=== PATIENT | female | born 1975 | race Caucasian/White ===

== ENCOUNTER 2017-09-09 15:03 | Inpatient (IN) | payer MEDICARE, MEDICAID ==
[~2017-09-09] VITALS: Ht 167.6 cm; Wt 68.5 kg
[2017-09-09] MEDS ORDERED: AMIT10TA6 PO (15:23)
[2017-09-09] MEDS ORDERED: GABA-529 PO (15:23)
[2017-09-09] MEDS ORDERED: HYDR-3705 PO (15:23)
[2017-09-09] MEDS ORDERED: ACETAMINOPHEN 325 MG TABLET PO ONE (16:30)
[2017-09-09] MEDS ORDERED: GABA-531 PO (18:19)
[2017-09-09] MEDS ORDERED: SUMAtriptan SUCCINATE 6 MG/0.5 ML VIAL SQ ONE (18:30)
[2017-09-09 19:43] LABS: BASOPHILS % (AUTO) 0.2 % (0.0-2.0); HEMATOCRIT 40.3 % (36-46); HEMOGLOBIN 13.6 g/dL (12.0-16.0); LYMPHOCYTES # (AUTO) 2.1 K/uL (1.0-4.8); LYMPHOCYTES % (AUTO) 21.5 % (22.0-44.0); MEAN CORPUSCULAR HEMOGLOBIN 30.7 pg (26.0-34.0); MEAN CORPUSCULAR HGB CONC 33.6 G/dL (31.0-37.0); MEAN CORPUSCULAR VOLUME 91 fL (80-100); MONOCYTES # (AUTO) 0.8 K/uL (0.1-1.0); NEUTROPHILS # (AUTO) 6.9 K/uL (1.8-7.7); NEUTROPHILS % (AUTO) 69.3 % (40.0-70.0); PLATELET COUNT (AUTO) 199 K/uL (150-450); RED BLOOD CELL COUNT(AUTO) 4.42 MIL/uL (4.00-5.20); RED CELL DISTRIBUTION WIDTH 13.5 % (11.5-14.5)
[2017-09-09 19:52] LABS: ANION GAP 12 mmol/L (8-16); CALCIUM, TOTAL 9.1 mg/dL (8.8-10.5); CARBON DIOXIDE 24 mmol/L (22-29); CHLORIDE 105 mmol/L (98-107); CREATININE 0.75 mg/dL (0.60-1.30); GLOMERULAR FILTR. RATE CALC > 60 mL/min (>60); GLUCOSE,RANDOM 94 mg/dL (70-110); POTASSIUM 3.8 mmol/L (3.5-5.1); SODIUM SERUM 141 mmol/L (136-145); UREA NITROGEN, BLOOD 11 mg/dL (7-18)
[2017-09-09 19:58] LABS: ALANINE AMINOTRANSFERASE 22 U/L (12-78); ALKALINE PHOSPHATASE 70 U/L (46-116); ASPARTATE AMINOTRANSFERASE 32 U/L (15-37); BILIRUBIN,TOTAL 0.2 mg/dL (0.1-1.0); TOTAL PROTEIN, SERUM 7.2 g/dL (6.4-8.2)
[2017-09-09] MEDS ORDERED: ZOLPIDEM TARTRATE 10 MG TABLET PO PRN (20:30)
[2017-09-09] MEDS ORDERED: HALOPERIDOL 5 MG TABLET PO PRN (20:30)
[2017-09-09 21:12] LABS: CHOL/HDL RATIO 1.8 (3.9-5.7); CHOLESTEROL 144 mg/dL (131-200); HDL CHOLESTEROL 81 mg/dL (40-60); LDL CHOL (CALC.) 54 mg/dL (0-130); TRIGLYCERIDES 43 mg/dL (15-150)
[2017-09-09] MEDS ORDERED: GABAPENTIN 100 MG CAPSULE PO SCH (22:45)
[2017-09-09] MEDS ORDERED: ACETAMINOPHEN 325 MG TABLET PO PRN (23:15)
[2017-09-09] MEDS: HydrOXYzine HCL 25 MG TABLET PO PRN (23:23)
[2017-09-09 23:33] VITALS: BP 123/95
[2017-09-10 00:30] VITALS: BP 137/75
[2017-09-10] MEDS: IBUPROFEN 400 MG TABLET PO PRN ×2 (00:39→10:27)
[2017-09-10 08:10] VITALS: BP 113/73
[2017-09-10] MEDS ORDERED: SUMAtriptan SUCCINATE 25 MG TABLET PO PRN (08:15)
[2017-09-10] MEDS ORDERED: ONDANSETRON HCL 4 MG TABLET PO PRN (08:15)
[2017-09-10] MEDS ORDERED: GABA-529 PO (10:19)
[2017-09-10] MEDS: HydrOXYzine HCL 25 MG TABLET PO PRN (12:28)
== END 2017-09-10 15:19 | disposition home or self-care (01) | DRG 885 ==
LOC: EMS 15:04 → 3EX 21:00
PROVIDERS: ADMIT Psychiatry & Neurology Psychiatry; ATTEND Psychiatry & Neurology Psychiatry
DX: F32.2 Major depressive disorder, single episode, severe without psychotic features (principal); F41.1 Generalized anxiety disorder; G43.909 Migraine, unspecified, not intractable, without status migrainosus; G89.29 Other chronic pain; M54.30 Sciatica, unspecified side; Z88.1 Allergy status to other antibiotic agents; Z88.8 Allergy status to other drugs, medicaments and biological substances; Z79.899 Other long term (current) drug therapy
CPT/HCPCS: G0480; J3030; Q0162